=== PATIENT | female | born 1995 | race African-American/Black ===

== ENCOUNTER 2020-01-11 19:41 | Emergency (ER) | payer BC, SELFPAY ==
[2020-01-11] MEDS ORDERED: diphenhydrAMINE 50 MG/ML VIAL ONE (20:58)
[2020-01-11] MEDS ORDERED: Metoclopramide HCl 10 MG/2 ML VIAL ONE (20:58)
[2020-01-11 21:23] LABS: #Basophils 0.1 thou/uL (0.0-0.2); #Eosinphils 0.4 thou/uL (0.0-0.7); #Lymphocytes 2.6 thou/uL (1.20-3.40); #Monocytes 0.6 thou/uL (0.11-0.59); #Neutrophils 2.5 thou/uL (1.40-6.50); %Eosinophils 6.2 % (0.0-10.0); %Lymphocytes 43.2 % (21.0-51.0); %Neutrophils 40.6 % (42.0-75.0); Hemoglobin 14.3 g/dL (12.0-16.0); Mean Corpuscular HGB CONC 33.7 g/dL (32.0-36.0); Mean Corpuscular Hemoglobin 30.2 pg (27.0-31.0); Mean Corpuscular Volume 89.7 fL (78.0-98.0); Mean Platelet Volume 7.5 fL (7.4-10.4); Platelet Count 313 thou/uL (130-400); RBC Distribution Width 11.1 % (11.5-14.5); Red Blood Cell (RBC) Count 4.74 mill/uL (4.20-5.40); White Blood Cell (WBC) Count 6.1 thou/uL (4.8-10.8)
--- NOTE | 2020-01-11 21:43 | CT ---
CT HEAD WITHOUT IV CONTRAST COMPARISON: None HISTORY: Headache. TECHNIQUE: Axial CT imaging at 5 mm intervals from vertex through skull base without contrast FINDINGS: There is motion present at the skull base which limits evaluation. There is no evidence of an acute i nfarction, hemorrhage, mass effect, or midline shift. The ventricular system is normal in size, shape, and position. There is opacification of the right frontal sinus and right frontal ethmoidal recess. Visualized mast oid air cells are clear. Osseous structures appear intact. IMPRESSION: 1. No acute intracranial abnormality demonstrated. 2. Sinus disease.
[2020-01-11 21:46] LABS: ALT (SGPT) 27 U/L (8-55); AST (SGOT) 29 U/L (5-34); Albumin 4.1 g/dL (3.5-5.0); Alkaline Phosphatase 60 U/L (40-110); Anion Gap 14 mmol/L (10-20); BUN (Urea Nitrogen) 9 mg/dL (7.0-18.7); Bilirubin, Total 0.2 mg/dL (0.2-1.2); Calc. Creatinine Clearance 0 mL/min (70-130); Calcium 9.7 mg/dL (7.8-10.44); Carbon Dioxide 25 mmol/L (22-29); Chloride 101 mmol/L (98-107); Estimated GFR-MDRD 85; Globulin 4.3 g/dL (2.4-3.5); Glucose 406 mg/dL (70-105); Lipase 31 U/L (8-78); Potassium 4.4 mmol/L (3.5-5.1); Protein, Total 8.4 g/dL (6.0-8.3); Sodium 136 mmol/L (136-145)
--- NOTE | 2020-01-14 14:32 | EKG ---
Test Reason : DIZZY Blood Pressure : / mmHG Vent. Rate : 080 BPM Atrial Rate : 080 BPM P-R Int : 166 ms QRS Dur : 094 ms QT Int : 402 ms P-R-T Axes : 054 016 032 degrees QTc Int : 463 ms Normal sinus rhythm Cannot rule out Anterior infarct , age undetermined Abnormal ECG Confirmed by BENJAMIN MEJIA ([id number]), photographic editor JULITO WARREN ([id number] on 01/14/2020 2:31:54 PM Referred By: Confirmed By:BENJAMIN Easley
== END 2020-01-12 00:08 | disposition home or self-care (01) ==
LOC: ERS 19:41
DX: R51 Headache (principal); E11.9 Type 2 diabetes mellitus without complications; F17.290 Nicotine dependence, other tobacco product, uncomplicated; Z79.84 Long term (current) use of oral hypoglycemic drugs
CPT/HCPCS: 36416; 70450; 80053; 82010; 83690; 85025; 93005; 96365; 96375; J1200; J2765

== ENCOUNTER 2020-01-21 20:12 | Emergency (ER) | payer OTHER, SELFPAY ==
[2020-01-21] MEDS ORDERED: Insulin Regular 300 UNITS/3 ML VIAL ONE (21:11)
[2020-01-21 22:20] LABS: Bilirubin Negative (Negative); Blood, Urine Negative (Negative); Clarity Clear (Clear); Glucose, Urine (Dipstick) Greater than 1000 mg/dL (Negative); Leukocyte Negative Leu/uL (Negative); Nitrite Negative (Negative); Protein, Urine (Dipstick) Negative (Neg-Trace); Urobilinogen Normal mg/dL (Less than 2)
[2020-01-21 22:24] LABS: Pregnancy Test - Urine (BHCG) Negative (Negative); Pregu Control Background? CLEAR/WHITE (CLR/WHITE); Pregu Control Bar Appear? YES (CONTROL BAR); Specific Gravity 1.036 (1.002-1.036)
== END 2020-01-21 22:57 | disposition home or self-care (01) ==
LOC: ERS 20:12
DX: E11.65 Type 2 diabetes mellitus with hyperglycemia (principal); F17.290 Nicotine dependence, other tobacco product, uncomplicated; Z79.84 Long term (current) use of oral hypoglycemic drugs
CPT/HCPCS: 36416; 81003; 81025; J1815

== ENCOUNTER 2020-07-21 16:17 | Emergency (ER) | payer SELFPAY ==
[2020-07-21 18:30] LABS: Bilirubin Negative (Negative); Blood, Urine 2+ (Negative); Clarity Clear (Clear); Glucose, Urine (Dipstick) Greater than 1000 mg/dL (Negative); Ketone, Urine Trace mg/dL (Negative); Leukocyte Negative Leu/uL (Negative); Nitrite Negative (Negative); Protein, Urine (Dipstick) 30 mg/dL (Neg-Trace); Specific Gravity, Urine 1.044 (1.002-1.036); Urobilinogen Normal mg/dL (Less than 2); Yeast-Budding 1+ HPF (None Seen)
[2020-07-21 18:31] LABS: Pregnancy Test - Urine (BHCG) Negative (Negative); Pregu Control Background? CLEAR/WHITE (CLR/WHITE); Pregu Control Bar Appear? YES (CONTROL BAR); Specific Gravity 1.044 (1.002-1.036)
[2020-07-21 18:38] LABS: Bacteria/HPF Rare-Few HPF (None Seen)
[2020-07-21] MEDS ORDERED: Ketorolac Tromethamine 30 MG/ML VIAL ONE (19:34)
== END 2020-07-21 19:45 | disposition home or self-care (01) ==
LOC: ERS 16:17
DX: L02.411 Cutaneous abscess of right axilla (principal); E11.9 Type 2 diabetes mellitus without complications; F17.290 Nicotine dependence, other tobacco product, uncomplicated; Z79.84 Long term (current) use of oral hypoglycemic drugs
CPT/HCPCS: 81003; 81015; 81025; 99283; J1885

== ENCOUNTER 2020-11-24 15:45 | Emergency (ER) | payer BC, SELFPAY ==
[2020-11-24] MEDS ORDERED: Morphine 4 MG/ML VIAL ONE (16:31)
[2020-11-24] MEDS ORDERED: Diazepam 5 MG TAB ONE (16:31)
[2020-11-24] MEDS ORDERED: Lidocaine 1% w/Epinephrine 1:100K 20 ML VIAL ONE (16:31)
[2020-11-24] MEDS ORDERED: Boostrix 0.5 ML (Tdap) VIAL ONE (16:31)
== END 2020-11-24 18:32 | disposition home or self-care (01) ==
LOC: ERS 15:45
DX: L02.214 Cutaneous abscess of groin (principal); E11.9 Type 2 diabetes mellitus without complications; F17.290 Nicotine dependence, other tobacco product, uncomplicated
CPT/HCPCS: 10061; 87070; 87205; 90471; 90715; J2270

== ENCOUNTER 2021-03-13 14:46 | Inpatient (IN) | payer BC, SELFPAY ==
[~2021-03-13 14:46] MED LIST: Iopamidol-370 76% 500 ML 1 ML ONE
[2021-03-13] MEDS ORDERED: cefTRIAXone\\ROCEPHIN 2 GM VIAL ONE (15:10)
[2021-03-13] MEDS ORDERED: VANCOMYCIN HCL IVPB SCH (15:30)
[2021-03-13] MEDS ORDERED: SODIUM CHLORIDE 0.9% IVPB SCH (15:30)
[2021-03-13] MEDS ORDERED: Sodium Chloride 0.9% 2,000 ML IV SCH (15:30)
[2021-03-13 15:38] LABS: Hemoglobin 14.7 g/dL (12.0-16.0); Mean Corpuscular HGB CONC 33.6 g/dL (32.0-36.0); Mean Corpuscular Hemoglobin 30.3 pg (27.0-31.0); Mean Corpuscular Volume 90.2 fL (78.0-98.0); Mean Platelet Volume 7.2 fL (7.4-10.4); Platelet Count 252 thou/uL (130-400); Red Blood Cell (RBC) Count 4.87 mill/uL (4.20-5.40); White Blood Cell (WBC) Count 16.5 thou/uL (4.8-10.8)
[2021-03-13 16:01] LABS: ALT (SGPT) 23 U/L (8-55); AST (SGOT) 23 U/L (5-34); Albumin 4.1 g/dL (3.5-5.0); Alkaline Phosphatase 89 U/L (40-110); Anion Gap 22 mmol/L (10-20); BUN (Urea Nitrogen) 13 mg/dL (7.0-18.7); Calc. Creatinine Clearance 0 mL/min (70-130); Calcium 9.1 mg/dL (7.8-10.44); Carbon Dioxide 18 mmol/L (22-29); Chloride 94 mmol/L (98-107); Globulin 4.6 g/dL (2.4-3.5); Glucose 368 mg/dL (70-105); Lipase 15 U/L (8-78); Potassium 3.8 mmol/L (3.5-5.1); Protein, Total 8.7 g/dL (6.0-8.3); Sodium 130 mmol/L (136-145)
[2021-03-13 16:06] LABS: Band 4 % (5-11); Lymphocytes 15 % (21-51); MDiff Complete? YES; Monocytes 7 % (0-10); Neutrophil 74 % (42-75); Platelet Morphology Comment Appears Adequate; RBC Morphology Normal; Vacuoles SLIGHT
[2021-03-13 16:38] LABS: Bilirubin Negative (Negative); Blood, Urine 3+ (Negative); Clarity Extra Turbid (Clear); Glucose, Urine (Dipstick) Greater than 1000 mg/dL (Negative); Ketone, Urine Greater than 150 mg/dL (Negative); Leukocyte 500 Leu/uL (Negative); Nitrite Negative (Negative); Protein, Urine (Dipstick) 300 mg/dL (Neg-Trace); RBC/HPF Greater than 50 HPF (0-3); Specific Gravity, Urine 1.027 (1.002-1.036); Squamous Epithelial None Seen HPF (0-3); WBC/HPF Greater than 50 HPF (0-3)
[2021-03-13 16:39] LABS: Bacteria/HPF 1+ HPF (None Seen)
[2021-03-13] MEDS ORDERED: Acetaminophen 500 MG TAB ONE (17:05)
[2021-03-13 18:22] LABS: Actual Bicarbonate (HCO3v) 21 mEq/L (22-28); Analyzer IN Cardio ER; Base Excess -5.3 mEq/L (-2.0 to +3.0); Calcium, Ionized (venous) 1.04 mmol/L (1.16-1.32); Chloride (VBG) 98 mmol/L (98-106); Hemoglobin (Hb) 14.4 g/dL (11.7-15.5); Potassium (VBG) 3.75 mmol/L (3.70-5.30); pH (venous) 7.29 (7.32-7.43)
[2021-03-13] MEDS ORDERED: Dextrose 50% Abboject 50 ML SYRINGE SLOW IVP PRN (18:54)
[2021-03-13] MEDS ORDERED: Dextrose 5% in Water 1,000 ML IV PRN (18:54)
[2021-03-13] MEDS ORDERED: Lantus 1000 UNITS/10 ML VIAL SC SCH (19:00)
[2021-03-13 19:10] LABS: Lactic Acid 1.8 mmol/L (0.5-2.2)
[2021-03-13] MEDS ORDERED: Morphine 2 MG/ML VIAL SLOW IVP PRN (19:45)
[2021-03-13] MEDS ORDERED: Piperacillin/Tazobactam 3.375 GM in Sodium Chloride 0.9% 100 ML IVPB SCH (20:00)
[2021-03-13] MEDS: HumaLOG 300 UNITS/3 ML VIAL SC PRN (20:45)
[2021-03-13] MEDS: Sodium Chloride 0.9% 1,000 ML IV SCH (20:47)
[2021-03-13 21:03] VITALS: BMI 29.3
[2021-03-13] MEDS ORDERED: HumaLOG 300 UNITS/3 ML VIAL SC SCH (23:00)
[2021-03-13] MEDS: Piperacillin/Tazobactam 3.375 GM in Sodium Chloride 0.9% 100 ML IVPB SCH (23:24)
[2021-03-13 23:31] LABS: Anion Gap 16 mmol/L (10-20); BUN (Urea Nitrogen) 9 mg/dL (7.0-18.7); Calc. Creatinine Clearance 194 mL/min (70-130); Calcium 8.5 mg/dL (7.8-10.44); Carbon Dioxide 18 mmol/L (22-29); Chloride 101 mmol/L (98-107); Glucose 316 mg/dL (70-105); Potassium 4.2 mmol/L (3.5-5.1); Sodium 131 mmol/L (136-145)
[2021-03-14] MEDS ORDERED: Acetaminophen 650 MG Suppository PR PRN (03:06)
[2021-03-14] MEDS: Acetaminophen 325 MG TAB PO PRN ×3 (03:23→15:51)
[2021-03-14] MEDS: Ondansetron PF 4 MG/2 ML Vial IVP PRN ×3 (03:29→22:38)
[2021-03-14] MEDS: HumaLOG 300 UNITS/3 ML VIAL SC PRN ×4 (04:54→21:29)
[2021-03-14] MEDS: Sodium Chloride 0.9% 1,000 ML IV SCH ×4 (04:56→22:04)
[2021-03-14] MEDS: HYDROcodone/Acetaminophen 5/325 mg Tablet PO PRN ×3 (08:40→22:52)
[2021-03-14] MEDS: Enoxaparin Sodium 40 MG/0.4 ML SYRINGE SC SCH (08:40)
[2021-03-14] MEDS: Piperacillin/Tazobactam 3.375 GM in Sodium Chloride 0.9% 100 ML IVPB SCH ×3 (09:30→22:46)
[2021-03-14] MEDS ORDERED: Lantus 1000 UNITS/10 ML VIAL SC SCH ×2 (10:15→23:00)
[2021-03-14 10:52] LABS: Magnesium 1.7 mg/dL (1.6-2.6)
[2021-03-14 10:53] LABS: Anion Gap 13 mmol/L (10-20); BUN (Urea Nitrogen) 7 mg/dL (7.0-18.7); Calc. Creatinine Clearance 194 mL/min (70-130); Calcium 8.3 mg/dL (7.8-10.44); Carbon Dioxide 18 mmol/L (22-29); Chloride 101 mmol/L (98-107); Glucose 344 mg/dL (70-105); Potassium 3.2 mmol/L (3.5-5.1); Sodium 129 mmol/L (136-145)
[2021-03-14 11:00] LABS: Phosphorus 1.1 mg/dL (2.3-4.7)
[2021-03-14] MEDS: Ketorolac Tromethamine 30 MG/ML VIAL IVP SCH ×3 (11:14→22:39)
[2021-03-14] MEDS ORDERED: Potassium Phosphate 30 MMOL in Sodium Chloride 0.9% 500 ML IVPB SCH (11:30)
[2021-03-14] MEDS ORDERED: Magnesium 2 GM/50 ML 2 GM in Premix Bag 1 BAG IVPB SCH (11:45)
[2021-03-14] MEDS ORDERED: cefTRIAXone\\ROCEPHIN 1 GM in Sodium Chloride 0.9% 100 ML IVPB SCH (15:00)
[2021-03-15] MEDS: HumaLOG 300 UNITS/3 ML VIAL SC PRN ×4 (00:10→23:40)
[2021-03-15] MEDS: HYDROcodone/Acetaminophen 5/325 mg Tablet PO PRN ×3 (05:19→20:30)
[2021-03-15] MEDS: Ketorolac Tromethamine 30 MG/ML VIAL IVP SCH ×3 (05:19→18:35)
[2021-03-15] MEDS: Ondansetron PF 4 MG/2 ML Vial IVP PRN ×2 (05:58→20:28)
[2021-03-15] MEDS: Sodium Chloride 0.9% 1,000 ML IV SCH ×4 (06:09→23:50)
[2021-03-15 06:51] LABS: Hemoglobin 10.8 g/dL (12.0-16.0); Hemoglobin A1c 13.6 % (4.0-6.0); Mean Corpuscular HGB CONC 31.6 g/dL (32.0-36.0); Mean Corpuscular Hemoglobin 28.3 pg (27.0-31.0); Mean Corpuscular Volume 89.7 fL (78.0-98.0); Platelet Count 233 thou/uL (130-400); RBC Distribution Width 10.9 % (11.5-14.5); Red Blood Cell (RBC) Count 3.79 mill/uL (4.20-5.40); White Blood Cell (WBC) Count 11.1 thou/uL (4.8-10.8)
[2021-03-15 07:10] LABS: ALT (SGPT) 35 U/L (8-55); AST (SGOT) 44 U/L (5-34); Albumin 2.9 g/dL (3.5-5.0); Alkaline Phosphatase 83 U/L (40-110); Anion Gap 14 mmol/L (10-20); BUN (Urea Nitrogen) 9 mg/dL (7.0-18.7); Bilirubin, Total 0.5 mg/dL (0.2-1.2); Calc. Creatinine Clearance 204 mL/min (70-130); Calcium 8.3 mg/dL (7.8-10.44); Carbon Dioxide 18 mmol/L (22-29); Chloride 102 mmol/L (98-107); Glucose 294 mg/dL (70-105); Magnesium 2.1 mg/dL (1.6-2.6); Potassium 3.2 mmol/L (3.5-5.1); Protein, Total 6.9 g/dL (6.0-8.3); Sodium 131 mmol/L (136-145)
[2021-03-15 07:11] LABS: Phosphorus 1.1 mg/dL (2.3-4.7)
[2021-03-15 07:28] LABS: Band 13 % (5-11); Lymphocytes 10 % (21-51); MDiff Complete? YES; Monocytes 9 % (0-10); Neutrophil 68 % (42-75); Platelet Morphology Comment Appears Adequate; RBC Morphology Normal
[2021-03-15] MEDS ORDERED: Potassium Phosphate 30 MMOL in Sodium Chloride 0.9% 500 ML IVPB SCH (09:00)
[2021-03-15] MEDS ORDERED: Lantus 1000 UNITS/10 ML VIAL SC SCH ×2 (09:00→22:30)
[2021-03-15] MEDS: Piperacillin/Tazobactam 3.375 GM in Sodium Chloride 0.9% 100 ML IVPB SCH (09:02)
[2021-03-15] MEDS: Enoxaparin Sodium 40 MG/0.4 ML SYRINGE SC SCH (09:03)
[2021-03-15] MEDS: Lantus 1000 UNITS/10 ML VIAL SC SCH (09:09)
[2021-03-15] MEDS ORDERED: Electrolyte Replacement Protocol 1 EACH FS SCH (16:15)
[2021-03-15 16:17] LABS: HIV (1/2) Antibody/Antigen Non-Reactive (NonReactive); HIV 1/2 INDEX 0.08 S/CO (<1.00)
[2021-03-15] MEDS ORDERED: Electrolyte Replacement Protocol FS PRN (16:30)
[2021-03-15] MEDS: cefTRIAXone\\ROCEPHIN 2 GM in Sodium Chloride 0.9% 100 ML IVPB SCH (16:31)
[2021-03-15] MEDS: Saccharomyces boulardii 250 MG CAP PO SCH (20:28)
[2021-03-15] MEDS: Acetaminophen 325 MG TAB PO PRN (23:42)
[2021-03-16] MEDS: Sodium Chloride 0.9% 1,000 ML IV SCH ×5 (02:00→22:00)
[2021-03-16] MEDS: HumaLOG 300 UNITS/3 ML VIAL SC PRN ×4 (03:25→23:54)
[2021-03-16] MEDS: HYDROcodone/Acetaminophen 5/325 mg Tablet PO PRN ×5 (03:29→23:55)
[2021-03-16] MEDS: Ondansetron PF 4 MG/2 ML Vial IVP PRN ×2 (05:12→16:01)
[2021-03-16 05:32] LABS: Phosphorus 1.8 mg/dL (2.3-4.7)
[2021-03-16 05:33] LABS: Anion Gap 14 mmol/L (10-20); BUN (Urea Nitrogen) 8 mg/dL (7.0-18.7); Bilirubin, Total 0.4 mg/dL (0.2-1.2); Calc. Creatinine Clearance 233 mL/min (70-130); Calcium 7.9 mg/dL (7.8-10.44); Carbon Dioxide 21 mmol/L (22-29); Chloride 105 mmol/L (98-107); Glucose 259 mg/dL (70-105); Potassium 3.5 mmol/L (3.5-5.1); Sodium 136 mmol/L (136-145)
[2021-03-16 05:34] LABS: ALT (SGPT) 60 U/L (8-55); AST (SGOT) 80 U/L (5-34); Alkaline Phosphatase 93 U/L (40-110); Band 4 % (5-11); Globulin 3.3 g/dL (2.4-3.5); Hemoglobin 10.6 g/dL (12.0-16.0); Lymphocytes 23 % (21-51); MDiff Complete? YES; Mean Corpuscular HGB CONC 32.1 g/dL (32.0-36.0); Mean Corpuscular Hemoglobin 28.8 pg (27.0-31.0); Mean Corpuscular Volume 89.9 fL (78.0-98.0); Mean Platelet Volume 7.2 fL (7.4-10.4); Metamyelocyte 1 % (0-0); Monocytes 10 % (0-10); Neutrophil 62 % (42-75); Platelet Count 256 thou/uL (130-400); Platelet Morphology Comment Appears Adequate; Protein, Total 6.3 g/dL (6.0-8.3); RBC Distribution Width 10.9 % (11.5-14.5); Red Blood Cell (RBC) Count 3.68 mill/uL (4.20-5.40); White Blood Cell (WBC) Count 9.3 thou/uL (4.8-10.8)
[2021-03-16] MEDS: PHOS-NAK 1 PKT PACK PO SCH ×2 (06:35→09:14)
[2021-03-16] MEDS ORDERED: Magnesium 2 GM/50 ML 2 GM in Premix Bag 1 BAG IVPB SCH (07:15)
[2021-03-16] MEDS: Acetaminophen 325 MG TAB PO PRN ×2 (09:14→18:46)
[2021-03-16] MEDS: Enoxaparin Sodium 40 MG/0.4 ML SYRINGE SC SCH ×2 (09:15→09:28)
[2021-03-16] MEDS: Lantus 1000 UNITS/10 ML VIAL SC SCH (09:15)
[2021-03-16] MEDS: cefTRIAXone\\ROCEPHIN 2 GM in Sodium Chloride 0.9% 100 ML IVPB SCH (16:02)
[2021-03-16] MEDS: Saccharomyces boulardii 250 MG CAP PO SCH (20:13)
[2021-03-17] MEDS: HumaLOG 300 UNITS/3 ML VIAL SC PRN ×4 (04:02→17:20)
[2021-03-17] MEDS: HYDROcodone/Acetaminophen 10/325 mg Tablet PO PRN ×4 (04:05→23:10)
[2021-03-17 06:30] LABS: Anion Gap 11 mmol/L (10-20); BUN (Urea Nitrogen) 5 mg/dL (7.0-18.7); Calc. Creatinine Clearance 237 mL/min (70-130); Calcium 8.3 mg/dL (7.8-10.44); Carbon Dioxide 24 mmol/L (22-29); Chloride 103 mmol/L (98-107); Glucose 230 mg/dL (70-105); Potassium 3.3 mmol/L (3.5-5.1); Sodium 135 mmol/L (136-145)
[2021-03-17] MEDS ORDERED: Potassium Chloride 20 MEQ TAB PO SCH (06:45)
[2021-03-17 06:51] LABS: Band 3 % (5-11); Eosinophils 1 % (0-10); Hemoglobin 9.9 g/dL (12.0-16.0); Lymphocytes 30 % (21-51); MDiff Complete? YES; Mean Corpuscular HGB CONC 33.8 g/dL (32.0-36.0); Mean Corpuscular Hemoglobin 30.5 pg (27.0-31.0); Mean Corpuscular Volume 90.2 fL (78.0-98.0); Mean Platelet Volume 7.2 fL (7.4-10.4); Monocytes 11 % (0-10); Neutrophil 52 % (42-75); Nucleated RBC 2 % (0); Platelet Count 308 thou/uL (130-400); Platelet Morphology Comment Appears Adequate; RBC Distribution Width 10.9 % (11.5-14.5); RBC Morphology Normal; Reactive Lymphocytes 3 % (0-10); Red Blood Cell (RBC) Count 3.26 mill/uL (4.20-5.40); White Blood Cell (WBC) Count 7.9 thou/uL (4.8-10.8)
[2021-03-17] MEDS: Enoxaparin Sodium 40 MG/0.4 ML SYRINGE SC SCH (09:24)
[2021-03-17] MEDS: Sodium Chloride 0.9% 1,000 ML IV SCH ×2 (09:24→12:49)
[2021-03-17] MEDS: Lantus 1000 UNITS/10 ML VIAL SC SCH (09:25)
[2021-03-17] MEDS: cefTRIAXone\\ROCEPHIN 2 GM in Sodium Chloride 0.9% 100 ML IVPB SCH (17:20)
[2021-03-17] MEDS: Saccharomyces boulardii 250 MG CAP PO SCH (20:08)
[2021-03-18] MEDS: HYDROcodone/Acetaminophen 10/325 mg Tablet PO PRN ×2 (04:02→13:21)
[2021-03-18] MEDS: Sodium Chloride 0.9% 1,000 ML IV SCH (04:03)
[2021-03-18] MEDS: HumaLOG 300 UNITS/3 ML VIAL SC PRN ×2 (04:06→13:16)
[2021-03-18 05:32] VITALS: TEMP 97.9
[2021-03-18 06:29] LABS: Mean Corpuscular HGB CONC 33.9 g/dL (32.0-36.0); Mean Corpuscular Hemoglobin 30.7 pg (27.0-31.0); Mean Corpuscular Volume 90.4 fL (78.0-98.0); Mean Platelet Volume 7.2 fL (7.4-10.4); Platelet Count 343 thou/uL (130-400); Red Blood Cell (RBC) Count 3.27 mill/uL (4.20-5.40); White Blood Cell (WBC) Count 7.8 thou/uL (4.8-10.8)
[2021-03-18 06:47] LABS: Band 13 % (5-11); Eosinophils 1 % (0-10); Hypochromia SLIGHT = 6-15 cells (100X) (0-5/hpf); Lymphocytes 33 % (21-51); MDiff Complete? YES; Monocytes 1 % (0-10); Neutrophil 52 % (42-75); Platelet Morphology Comment Appears Adequate
[2021-03-18 06:56] LABS: Anion Gap 11 mmol/L (10-20); BUN (Urea Nitrogen) 4 mg/dL (7.0-18.7); Calc. Creatinine Clearance 245 mL/min (70-130); Calcium 8.4 mg/dL (7.8-10.44); Carbon Dioxide 24 mmol/L (22-29); Chloride 106 mmol/L (98-107); Glucose 166 mg/dL (70-105); Potassium 3.5 mmol/L (3.5-5.1); Sodium 137 mmol/L (136-145)
[2021-03-18] MEDS ORDERED: Potassium Chloride 20 MEQ TAB PO SCH (07:30)
[2021-03-18] MEDS: Enoxaparin Sodium 40 MG/0.4 ML SYRINGE SC SCH (08:23)
[2021-03-18] MEDS: Lantus 1000 UNITS/10 ML VIAL SC SCH (08:24)
[2021-03-18 14:19] VITALS: BP 150/94
== END 2021-03-18 14:40 | disposition home or self-care (01) | DRG 871 ==
LOC: ERS 14:46 → ERHOLD 17:09 → SJJU 19:54
PROVIDERS: ADMIT Internal Medicine; ATTEND Internal Medicine
DX: A41.51 Sepsis due to Escherichia coli [E. coli] (principal); E11.10 Type 2 diabetes mellitus with ketoacidosis without coma; N10 Acute pyelonephritis; E87.1 Hypo-osmolality and hyponatremia; R65.20 Severe sepsis without septic shock; E87.6 Hypokalemia; E83.42 Hypomagnesemia; E83.39 Other disorders of phosphorus metabolism; F17.210 Nicotine dependence, cigarettes, uncomplicated; E66.9 Obesity, unspecified; E11.65 Type 2 diabetes mellitus with hyperglycemia; D64.9 Anemia, unspecified; Z68.29 Body mass index [BMI] 29.0-29.9, adult; Z79.4 Long term (current) use of insulin
CPT/HCPCS: 36415; 36416; 74177; 80048; 80053; 81001; 82010; 82805; 83036; 83605; 83690; 83735; 84100; 84484; 85025; 87040; 87077; 87086; 87149; 87186; 87389; 96365; 96366; 96367; J0696; J1650; J1815; J1885; J2270; J2405; J2543; J3370; J3475; J3490; J7030; J7050; Q9967

== ENCOUNTER 2021-06-21 18:04 | Emergency (ER) | payer BC, MEDICAID | END 2021-06-21 19:31 | disposition home or self-care (01) | LOC: ERS 18:04 | DX: H10.9 Unspecified conjunctivitis (principal); H00.014 Hordeolum externum left upper eyelid | CPT/HCPCS: 99283 ==

== ENCOUNTER 2021-06-29 09:58 | Emergency (ER) | payer BC, MEDICAID ==
[2021-06-29 12:01] LABS: ALT (SGPT) 19 U/L (8-55); AST (SGOT) 15 U/L (5-34); Albumin 3.8 g/dL (3.5-5.0); Alkaline Phosphatase 66 U/L (40-110); Anion Gap 15 mmol/L (10-20); BUN (Urea Nitrogen) 11 mg/dL (7.0-18.7); Bilirubin, Total 0.5 mg/dL (0.2-1.2); Calc. Creatinine Clearance 0 mL/min (70-130); Calcium 9.2 mg/dL (7.8-10.44); Carbon Dioxide 21 mmol/L (22-29); Chloride 103 mmol/L (98-107); Globulin 4.1 g/dL (2.4-3.5); Glucose 320 mg/dL (70-105); Lipase 24 U/L (8-78); Potassium 3.6 mmol/L (3.5-5.1); Protein, Total 7.9 g/dL (6.0-8.3); Sodium 135 mmol/L (136-145)
[2021-06-29 12:12] LABS: Bacteria/HPF 4+ HPF (None Seen); Bilirubin Negative (Negative); Blood, Urine 3+ (Negative); Clarity Extra Turbid (Clear); Glucose, Urine (Dipstick) Greater than 1000 mg/dL (Negative); Ketone, Urine Trace mg/dL (Negative); Leukocyte 500 Leu/uL (Negative); Nitrite Negative (Negative); Protein, Urine (Dipstick) 100 mg/dL (Neg-Trace); RBC/HPF Greater than 50 HPF (0-3); Specific Gravity, Urine 1.035 (1.002-1.036); Urobilinogen Normal mg/dL (Less than 2); WBC/HPF Greater than 50 HPF (0-3)
[2021-06-29 12:13] LABS: Pregnancy Test - Urine (BHCG) Negative (Negative); Pregu Control Background? CLEAR/WHITE (CLR/WHITE); Pregu Control Bar Appear? YES (CONTROL BAR); Specific Gravity 1.035 (1.002-1.036)
[2021-06-29 12:31] LABS: #Basophils 0.1 thou/uL (0.0-0.2); #Eosinphils 0.2 thou/uL (0.0-0.7); #Lymphocytes 2.3 thou/uL (1.20-3.40); #Monocytes 1.1 thou/uL (0.11-0.59); #Neutrophils 6.2 thou/uL (1.40-6.50); %Basophils 0.6 % (0.0-1.0); %Eosinophils 2.3 % (0.0-10.0); %Lymphocytes 23.2 % (21.0-51.0); %Monocytes 11.1 % (0.0-10.0); %Neutrophils 62.8 % (42.0-75.0); Hemoglobin 14.5 g/dL (12.0-16.0); Mean Corpuscular Hemoglobin 32.2 pg (27.0-31.0); Mean Corpuscular Volume 89.4 fL (78.0-98.0); Platelet Count 276 thou/uL (130-400); Red Blood Cell (RBC) Count 4.52 mill/uL (4.20-5.40); White Blood Cell (WBC) Count 9.9 thou/uL (4.8-10.8)
== END 2021-06-29 12:50 | disposition home or self-care (01) ==
LOC: ERS 09:58
DX: N39.0 Urinary tract infection, site not specified (principal); E10.9 Type 1 diabetes mellitus without complications
CPT/HCPCS: 36415; 80053; 81003; 81015; 81025; 83690; 85025; 87077; 87086; 87186; 99284

== ENCOUNTER 2021-08-05 13:43 | Emergency (ER) | payer BC, MEDICAID ==
[2021-08-05 21:52] LABS: SARS-CoV-2 PCR by NAA DETECTED (NotDetected)
== END 2021-08-05 14:31 | disposition home or self-care (01) ==
LOC: ERS 13:43
DX: U07.1 COVID-19 (principal); E10.9 Type 1 diabetes mellitus without complications
CPT/HCPCS: 87804; 99283; U0003; U0005

== ENCOUNTER 2022-06-19 09:30 | Inpatient (IN) | payer BC ==
[2022-06-19 09:57] LABS: Actual Bicarbonate (HCO3v) 20 mEq/L (22-28); Base Excess 2.2 mEq/L (-2.0 to +3.0); Calcium, Ionized (venous) 0.97 mmol/L (1.16-1.32); Chloride (VBG) 102 mmol/L (98-106); Sodium 133.7 mmol/L (133-146); pH (venous) 7.66 (7.32-7.43)
[2022-06-19 09:59] LABS: Potassium (VBG) 6.12 mmol/L (3.70-5.30)
[2022-06-19 10:03] LABS: #Eosinphils 0.1 thou/uL (0.0-0.7); #Lymphocytes 2.8 thou/uL (1.20-3.40); #Neutrophils 13.3 thou/uL (1.40-6.50); %Basophils 0.3 % (0.0-1.0); %Eosinophils 0.5 % (0.0-10.0); %Lymphocytes 15.2 % (21.0-51.0); %Neutrophils 73.1 % (42.0-75.0); Hemoglobin 14.4 g/dL (12.0-16.0); Mean Corpuscular HGB CONC 33.8 g/dL (32.0-36.0); Mean Corpuscular Hemoglobin 30.5 pg (27.0-31.0); Mean Corpuscular Volume 90.2 fl (78.0-98.0); Mean Platelet Volume 7.5 fL (7.4-10.4); Platelet Count 272 10x3/uL (130-400); RBC Distribution Width 10.8 % (11.5-14.5); Red Blood Cell (RBC) Count 4.71 mill/uL (4.20-5.40); White Blood Cell (WBC) Count 18.1 10x3/uL (4.8-10.8)
[2022-06-19] MEDS ORDERED: Albuterol Sulfate 2.5 mg/3 ml Neb ONE (10:04)
[2022-06-19] MEDS ORDERED: Iopamidol-370 76% 500 ML 1 ML ONE (10:21)
[2022-06-19 10:36] LABS: ALT (SGPT) 17 U/L (8-55); AST (SGOT) 20 U/L (5-34); Albumin 3.9 g/dL (3.5-5.0); Alkaline Phosphatase 64 U/L (40-110); Anion Gap 15 mmol/L (10-20); BUN (Urea Nitrogen) 8 mg/dL (7.0-18.7); Calc. Creatinine Clearance 0 mL/min (70-130); Calcium 9.4 mg/dL (7.8-10.44); Carbon Dioxide 21 mmol/L (22-29); Chloride 101 mmol/L (98-107); Estimated GFR 102; Globulin 4.5 g/dL (2.4-3.5); Glucose 330 mg/dL (70-105); Magnesium 1.5 mg/dL (1.6-2.6); Potassium 4.3 mmol/L (3.5-5.1); Protein, Total 8.4 g/dL (6.0-8.3); Sodium 133 mmol/L (136-145)
[2022-06-19] MEDS ORDERED: Ondansetron PF 4 MG/2 ML Vial ONE ×2 (10:58→14:02)
[2022-06-19] MEDS ORDERED: Piperacillin/Tazobactam 4.5 GM VIAL ONE (11:43)
[2022-06-19 11:45] LABS: BHCG - Serum Negative (NEGATIVE); Pregs Control Background? CLEAR/WHITE (CLR/WHITE); Pregs Control Bar Appear? YES (CONTROL BAR)
[2022-06-19] MEDS ORDERED: Morphine 4 MG/ML VIAL ONE ×2 (11:49→14:08)
[2022-06-19] MEDS ORDERED: Piperacillin/Tazobactam 4.5 GM in Sodium Chloride 0.9% 100 ML IVPB SCH (12:00)
[2022-06-19 12:15] LABS: Bilirubin Negative (Negative); Blood, Urine 3+ (Negative); Clarity Turbid (Clear); Glucose, Urine (Dipstick) Greater than 1000 mg/dL (Negative); Ketone, Urine 40 mg/dL (Negative); Leukocyte 500 Leu/uL (Negative); Nitrite Negative (Negative); Protein, Urine (Dipstick) 50 mg/dL (Neg-Trace); RBC/HPF Greater than 50 HPF (0-3); Specific Gravity, Urine 1.024 (1.002-1.036); Squamous Epithelial 0-3 HPF (0-3); Urobilinogen Normal mg/dL (Less than 2); WBC/HPF Greater than 50 HPF (0-3); Yeast-Budding 1+ HPF (None Seen)
[2022-06-19 12:25] LABS: Bacteria/HPF 1+ HPF (None Seen)
[2022-06-19] MEDS ORDERED: Insulin Regular 300 UNITS/3 ML VIAL ONE (13:01)
[2022-06-19] MEDS ORDERED: Azithromycin 500 MG VIAL ONE (13:02)
[2022-06-19] MEDS ORDERED: Enoxaparin Sodium 40 MG/0.4 ML SYRINGE SC SCH (13:30)
[2022-06-19] MEDS ORDERED: Dextrose 50% Abboject 50 ML SYRINGE SLOW IVP PRN (13:31)
[2022-06-19] MEDS ORDERED: Dextrose 5% in Water 1,000 ML IV PRN (13:31)
[2022-06-19] MEDS ORDERED: Pantoprazole 40 MG VIAL IVP SCH (13:36)
[2022-06-19] MEDS ORDERED: Magnesium 2 GM/50 ML(in water) 2 GM in Premix Bag 1 BAG IVPB SCH (13:45)
[2022-06-19] MEDS ORDERED: Acetaminophen 500 MG TAB ONE (14:15)
[2022-06-19 14:46] LABS: Hemoglobin A1c 13.4 % (4.0-6.0)
[2022-06-19 14:56] LABS: SARS-CoV-2 NAA Rapid Test Not Detected (NotDetected)
[2022-06-19 15:09] LABS: ALT (SGPT) 13 U/L (8-55); AST (SGOT) 13 U/L (5-34); Albumin 3.7 g/dL (3.5-5.0); Alkaline Phosphatase 62 U/L (40-110); Anion Gap 17 mmol/L (10-20); BUN (Urea Nitrogen) 7 mg/dL (7.0-18.7); Calc. Creatinine Clearance 0 mL/min (70-130); Calcium 8.1 mg/dL (7.8-10.44); Carbon Dioxide 19 mmol/L (22-29); Chloride 106 mmol/L (98-107); Estimated GFR 111; Globulin 3.2 g/dL (2.4-3.5); Glucose 290 mg/dL (70-105); Potassium 3.8 mmol/L (3.5-5.1); Protein, Total 6.9 g/dL (6.0-8.3); Sodium 138 mmol/L (136-145)
[2022-06-19 16:11] VITALS: BMI 31.7
[2022-06-19] MEDS: Sodium Chloride 0.9% 1,000 ML IV SCH (16:17)
[2022-06-19] MEDS: HumaLOG 300 UNITS/3 ML VIAL SC PRN ×2 (16:36→20:00)
[2022-06-19] MEDS: Ondansetron PF 4 MG/2 ML Vial IVP PRN (19:47)
[2022-06-19] MEDS: HYDROcodone/Acetaminophen 7.5/325 mg Tablet PO PRN (19:51)
[2022-06-19] MEDS: Acetaminophen 325 MG TAB PO PRN (23:17)
[2022-06-20] MEDS: Sodium Chloride 0.9% 1,000 ML IV SCH ×4 (03:03→20:10)
[2022-06-20] MEDS: Acetaminophen 325 MG TAB PO PRN ×4 (04:53→22:52)
[2022-06-20] MEDS: HumaLOG 300 UNITS/3 ML VIAL SC PRN ×4 (04:54→20:13)
[2022-06-20 06:38] LABS: Magnesium 1.8 mg/dL (1.6-2.6)
[2022-06-20] MEDS ORDERED: Insulin Glargine 30 UNITS/0.3 ML VIAL SC SCH (09:00)
[2022-06-20] MEDS: Pantoprazole 40 MG VIAL IVP SCH (09:05)
[2022-06-20] MEDS: HYDROcodone/Acetaminophen 7.5/325 mg Tablet PO PRN (09:07)
[2022-06-20] MEDS: Enoxaparin Sodium 40 MG/0.4 ML SYRINGE SC SCH (09:11)
[2022-06-20] MEDS: cefTRIAXone\\ROCEPHIN 2 GM in Sodium Chloride 0.9% 100 ML IVPB SCH (10:22)
[2022-06-20 10:25] LABS: Hemoglobin 12.1 g/dL (12.0-16.0); Mean Corpuscular HGB CONC 34.1 g/dL (32.0-36.0); Mean Corpuscular Hemoglobin 31.8 pg (27.0-31.0); Mean Corpuscular Volume 93.3 fl (78.0-98.0); Mean Platelet Volume 7.6 fL (7.4-10.4); Platelet Count 208 10x3/uL (130-400); RBC Distribution Width 10.7 % (11.5-14.5); Red Blood Cell (RBC) Count 3.79 mill/uL (4.20-5.40); White Blood Cell (WBC) Count 16.3 10x3/uL (4.8-10.8)
[2022-06-20 11:12] LABS: ALT (SGPT) 13 U/L (8-55); AST (SGOT) 14 U/L (5-34); Albumin 3.3 g/dL (3.5-5.0); Alkaline Phosphatase 60 U/L (40-110); Anion Gap 13 mmol/L (10-20); BUN (Urea Nitrogen) 8 mg/dL (7.0-18.7); Calc. Creatinine Clearance 217 mL/min (70-130); Calcium 8.3 mg/dL (7.8-10.44); Carbon Dioxide 21 mmol/L (22-29); Chloride 104 mmol/L (98-107); Estimated GFR 119; Globulin 3.5 g/dL (2.4-3.5); Glucose 249 mg/dL (70-105); Potassium 3.4 mmol/L (3.5-5.1); Protein, Total 6.8 g/dL (6.0-8.3); Sodium 135 mmol/L (136-145)
[2022-06-20 12:07] LABS: Lymphocytes 9 % (21-51); MDiff Complete? YES; Monocytes 14 % (0-10); Neutrophil 77 % (42-75); Platelet Morphology Comment Appears Adequate; RBC Morphology Normal
[2022-06-20] MEDS ORDERED: Potassium Chloride 20 MEQ TAB PO SCH (13:00)
[2022-06-20] MEDS ORDERED: Electrolyte Replacement Protocol 1 EACH FS SCH (13:00)
[2022-06-20] MEDS ORDERED: Magnesium 2 GM/50 ML(in water) 2 GM in Premix Bag 1 BAG IVPB SCH (13:15)
[2022-06-20] MEDS: Ketorolac Tromethamine 30 MG/ML VIAL IVP SCH ×2 (14:17→18:17)
[2022-06-20] MEDS: Ondansetron PF 4 MG/2 ML Vial IVP PRN ×2 (14:20→22:52)
[2022-06-20] MEDS ORDERED: Lactated Ringer's 1,000 ML IV SCH (20:00)
[2022-06-20] MEDS: Folic Acid 1 MG TAB PO SCH (20:09)
[2022-06-20] MEDS: Multivit, Therapeutic 1 TAB PO SCH (20:09)
[2022-06-20] MEDS: Cyanocobalamin (Vitamin B-12) 1,000 MCG TAB PO SCH (20:09)
[2022-06-20] MEDS: Lactated Ringer's 1,000 ML IV SCH (20:09)
[2022-06-21] MEDS: HYDROcodone/Acetaminophen 7.5/325 mg Tablet PO PRN ×4 (01:14→20:26)
[2022-06-21] MEDS ORDERED: Ondansetron PF 4 MG/2 ML Vial IVP SCH (01:45)
[2022-06-21] MEDS: Lactated Ringer's 1,000 ML IV SCH ×4 (02:18→17:49)
[2022-06-21] MEDS ORDERED: Ketorolac Tromethamine 30 MG/ML VIAL IVP SCH ×2 (02:45→18:00)
[2022-06-21] MEDS: Acetaminophen 325 MG TAB PO PRN (05:58)
[2022-06-21] MEDS: HumaLOG 300 UNITS/3 ML VIAL SC PRN (05:58)
[2022-06-21 07:03] LABS: #Eosinphils 0.1 thou/uL (0.0-0.7); #Monocytes 1.2 thou/uL (0.11-0.59); #Neutrophils 7.3 thou/uL (1.40-6.50); %Basophils 0.3 % (0.0-1.0); %Eosinophils 0.7 % (0.0-10.0); %Lymphocytes 19.1 % (21.0-51.0); %Monocytes 11.3 % (0.0-10.0); %Neutrophils 68.7 % (42.0-75.0); Hemoglobin 10.6 g/dL (12.0-16.0); Mean Corpuscular HGB CONC 32.2 g/dL (32.0-36.0); Mean Corpuscular Hemoglobin 30.1 pg (27.0-31.0); Mean Corpuscular Volume 93.4 fl (78.0-98.0); Mean Platelet Volume 7.4 fL (7.4-10.4); Platelet Count 191 10x3/uL (130-400); RBC Distribution Width 10.7 % (11.5-14.5); Red Blood Cell (RBC) Count 3.52 mill/uL (4.20-5.40); White Blood Cell (WBC) Count 10.6 10x3/uL (4.8-10.8)
[2022-06-21 07:17] LABS: Anion Gap 9 mmol/L (10-20); BUN (Urea Nitrogen) 9 mg/dL (7.0-18.7); Calc. Creatinine Clearance 237 mL/min (70-130); Calcium 8.1 mg/dL (7.8-10.44); Carbon Dioxide 22 mmol/L (22-29); Chloride 106 mmol/L (98-107); Estimated GFR 125; Glucose 245 mg/dL (70-105); Potassium 3.4 mmol/L (3.5-5.1); Sodium 134 mmol/L (136-145)
[2022-06-21] MEDS ORDERED: Potassium Chloride 20 MEQ TAB PO SCH (07:45)
[2022-06-21] MEDS ORDERED: Insulin Glargine 30 UNITS/0.3 ML VIAL SC SCH (09:00)
[2022-06-21] MEDS: Pantoprazole 40 MG VIAL IVP SCH (09:39)
[2022-06-21] MEDS: Enoxaparin Sodium 40 MG/0.4 ML SYRINGE SC SCH (09:39)
[2022-06-21] MEDS: cefTRIAXone\\ROCEPHIN 2 GM in Sodium Chloride 0.9% 100 ML IVPB SCH (09:40)
[2022-06-21] MEDS: Insulin Glargine 30 UNITS/0.3 ML VIAL SC SCH (20:20)
[2022-06-21] MEDS: Multivit, Therapeutic 1 TAB PO SCH (20:21)
[2022-06-21] MEDS: Cyanocobalamin (Vitamin B-12) 1,000 MCG TAB PO SCH (20:21)
[2022-06-21] MEDS: Folic Acid 1 MG TAB PO SCH (20:21)
[2022-06-21] MEDS: Senokot S 8.6-50 MG TAB PO SCH (20:37)
[2022-06-22] MEDS: Lactated Ringer's 1,000 ML IV SCH ×2 (05:44→18:33)
[2022-06-22] MEDS: HYDROcodone/Acetaminophen 7.5/325 mg Tablet PO PRN ×3 (05:44→20:03)
[2022-06-22 08:06] LABS: #Eosinphils 0.1 thou/uL (0.0-0.7); #Lymphocytes 1.9 thou/uL (1.20-3.40); #Monocytes 1.2 thou/uL (0.11-0.59); #Neutrophils 6.5 thou/uL (1.40-6.50); %Basophils 0.4 % (0.0-1.0); %Eosinophils 1.3 % (0.0-10.0); %Lymphocytes 19.7 % (21.0-51.0); %Monocytes 12.3 % (0.0-10.0); %Neutrophils 66.3 % (42.0-75.0); Hemoglobin 10.1 g/dL (12.0-16.0); Mean Corpuscular HGB CONC 31.5 g/dL (32.0-36.0); Mean Corpuscular Hemoglobin 29.6 pg (27.0-31.0); Mean Corpuscular Volume 93.8 fl (78.0-98.0); Mean Platelet Volume 7.4 fL (7.4-10.4); Platelet Count 239 10x3/uL (130-400); RBC Distribution Width 10.8 % (11.5-14.5); Red Blood Cell (RBC) Count 3.41 mill/uL (4.20-5.40); White Blood Cell (WBC) Count 9.8 10x3/uL (4.8-10.8)
[2022-06-22 08:25] LABS: Anion Gap 13 mmol/L (10-20); BUN (Urea Nitrogen) 6 mg/dL (7.0-18.7); Calc. Creatinine Clearance 241 mL/min (70-130); Calcium 8.6 mg/dL (7.8-10.44); Carbon Dioxide 23 mmol/L (22-29); Chloride 104 mmol/L (98-107); Estimated GFR 125; Glucose 230 mg/dL (70-105); Potassium 3.6 mmol/L (3.5-5.1); Sodium 136 mmol/L (136-145)
[2022-06-22] MEDS: Enoxaparin Sodium 40 MG/0.4 ML SYRINGE SC SCH (08:49)
[2022-06-22] MEDS: Saccharomyces boulardii 250 MG CAP PO SCH (08:49)
[2022-06-22] MEDS: Senokot S 8.6-50 MG TAB PO SCH ×2 (08:49→20:19)
[2022-06-22] MEDS: Insulin Glargine 30 UNITS/0.3 ML VIAL SC SCH ×2 (08:50→20:19)
[2022-06-22] MEDS: cefTRIAXone\\ROCEPHIN 2 GM in Sodium Chloride 0.9% 100 ML IVPB SCH (08:59)
[2022-06-22] MEDS: Cyanocobalamin (Vitamin B-12) 1,000 MCG TAB PO SCH (20:03)
[2022-06-22] MEDS: Multivit, Therapeutic 1 TAB PO SCH (20:03)
[2022-06-22] MEDS: Folic Acid 1 MG TAB PO SCH (20:04)
[2022-06-23] MEDS: HumaLOG 300 UNITS/3 ML VIAL SC PRN ×2 (03:27→20:21)
[2022-06-23] MEDS: HYDROcodone/Acetaminophen 7.5/325 mg Tablet PO PRN ×3 (03:33→20:27)
[2022-06-23] MEDS: Enoxaparin Sodium 40 MG/0.4 ML SYRINGE SC SCH (08:28)
[2022-06-23] MEDS: Lactated Ringer's 1,000 ML IV SCH (08:28)
[2022-06-23] MEDS: Saccharomyces boulardii 250 MG CAP PO SCH (08:29)
[2022-06-23] MEDS: Senokot S 8.6-50 MG TAB PO SCH ×2 (08:29→20:21)
[2022-06-23] MEDS: Insulin Glargine 30 UNITS/0.3 ML VIAL SC SCH ×2 (08:29→20:21)
[2022-06-23] MEDS: cefTRIAXone\\ROCEPHIN 2 GM in Sodium Chloride 0.9% 100 ML IVPB SCH (08:30)
[2022-06-23] MEDS: Ondansetron PF 4 MG/2 ML Vial IVP PRN ×2 (08:58→18:34)
[2022-06-23] MEDS: Ibuprofen 200 MG TAB PO PRN ×2 (08:59→18:33)
[2022-06-23] MEDS ORDERED: Bisacodyl 5 MG TAB PO SCH (17:15)
[2022-06-23] MEDS ORDERED: HumaLOG 300 UNITS/3 ML VIAL SC SCH ×2 (17:45→21:00)
[2022-06-23] MEDS: Pregabalin 50 MG CAP PO SCH (20:20)
[2022-06-23] MEDS: Cyanocobalamin (Vitamin B-12) 1,000 MCG TAB PO SCH (20:21)
[2022-06-23] MEDS: Multivit, Therapeutic 1 TAB PO SCH (20:21)
[2022-06-23] MEDS: Folic Acid 1 MG TAB PO SCH (20:21)
[2022-06-24] MEDS: HumaLOG 300 UNITS/3 ML VIAL SC PRN (04:57)
[2022-06-24 06:53] LABS: #Eosinphils 0.2 thou/uL (0.0-0.7); #Lymphocytes 1.9 thou/uL (1.20-3.40); #Monocytes 0.7 thou/uL (0.11-0.59); #Neutrophils 3.6 thou/uL (1.40-6.50); %Basophils 0.5 % (0.0-1.0); %Eosinophils 3.8 % (0.0-10.0); %Lymphocytes 29.4 % (21.0-51.0); %Monocytes 10.5 % (0.0-10.0); %Neutrophils 55.8 % (42.0-75.0); Hemoglobin 10.5 g/dL (12.0-16.0); Mean Corpuscular HGB CONC 32.8 g/dL (32.0-36.0); Mean Corpuscular Hemoglobin 30.8 pg (27.0-31.0); Mean Platelet Volume 7.3 fL (7.4-10.4); Platelet Count 291 10x3/uL (130-400); RBC Distribution Width 10.8 % (11.5-14.5); Red Blood Cell (RBC) Count 3.39 mill/uL (4.20-5.40); White Blood Cell (WBC) Count 6.5 10x3/uL (4.8-10.8)
[2022-06-24 07:16] LABS: Anion Gap 13 mmol/L (10-20); BUN (Urea Nitrogen) 7 mg/dL (7.0-18.7); Calc. Creatinine Clearance 241 mL/min (70-130); Calcium 8.8 mg/dL (7.8-10.44); Carbon Dioxide 25 mmol/L (22-29); Chloride 103 mmol/L (98-107); Estimated GFR 125; Glucose 255 mg/dL (70-105); Potassium 3.8 mmol/L (3.5-5.1); Sodium 137 mmol/L (136-145)
[2022-06-24] MEDS: Enoxaparin Sodium 40 MG/0.4 ML SYRINGE SC SCH (07:52)
[2022-06-24] MEDS: Pregabalin 50 MG CAP PO SCH ×2 (07:56→19:48)
[2022-06-24] MEDS: Senokot S 8.6-50 MG TAB PO SCH ×2 (07:56→20:56)
[2022-06-24] MEDS: Ibuprofen 200 MG TAB PO PRN ×2 (07:56→19:47)
[2022-06-24] MEDS: Saccharomyces boulardii 250 MG CAP PO SCH (07:56)
[2022-06-24] MEDS: Ondansetron PF 4 MG/2 ML Vial IVP PRN (07:57)
[2022-06-24] MEDS: Polyethylene Glycol 3350 17 GM Packet PO SCH (07:57)
[2022-06-24] MEDS: HumaLOG 300 UNITS/3 ML VIAL SC SCH ×3 (10:25→15:34)
[2022-06-24] MEDS: Insulin Glargine 30 UNITS/0.3 ML VIAL SC SCH ×2 (10:26→20:52)
[2022-06-24] MEDS: cefTRIAXone\\ROCEPHIN 2 GM in Sodium Chloride 0.9% 100 ML IVPB SCH (10:26)
[2022-06-24] MEDS: Metoclopramide HCl 10 MG/2 ML VIAL IVP SCH ×2 (15:34→20:52)
[2022-06-24] MEDS: Folic Acid 1 MG TAB PO SCH (19:48)
[2022-06-24] MEDS: Cyanocobalamin (Vitamin B-12) 1,000 MCG TAB PO SCH (19:48)
[2022-06-24] MEDS: Multivit, Therapeutic 1 TAB PO SCH (19:48)
[2022-06-25] MEDS: Metoclopramide HCl 10 MG/2 ML VIAL IVP SCH (05:04)
[2022-06-25 07:21] LABS: ALT (SGPT) 33 U/L (8-55); AST (SGOT) 21 U/L (5-34); Albumin 2.9 g/dL (3.5-5.0); Alkaline Phosphatase 80 U/L (40-110); Anion Gap 16 mmol/L (10-20); BUN (Urea Nitrogen) 8 mg/dL (7.0-18.7); Bilirubin, Direct 0.1 mg/dL (0.1-0.3); Bilirubin, Total 0.3 mg/dL (0.2-1.2); Calc. Creatinine Clearance 244 mL/min (70-130); Calcium 8.6 mg/dL (7.8-10.44); Carbon Dioxide 18 mmol/L (22-29); Chloride 105 mmol/L (98-107); Estimated GFR 126; Glucose 208 mg/dL (70-105); Potassium 3.8 mmol/L (3.5-5.1); Protein, Total 6.9 g/dL (6.0-8.3); Sodium 135 mmol/L (136-145)
[2022-06-25 08:11] VITALS: BP 135/87; TEMP 98.5
[2022-06-25] MEDS: Saccharomyces boulardii 250 MG CAP PO SCH (08:38)
[2022-06-25] MEDS: Enoxaparin Sodium 40 MG/0.4 ML SYRINGE SC SCH (08:39)
[2022-06-25] MEDS: Pregabalin 50 MG CAP PO SCH (08:39)
[2022-06-25] MEDS: Insulin Glargine 30 UNITS/0.3 ML VIAL SC SCH (08:39)
[2022-06-25] MEDS: HumaLOG 300 UNITS/3 ML VIAL SC SCH ×2 (08:39→12:03)
[2022-06-25] MEDS: Polyethylene Glycol 3350 17 GM Packet PO SCH (08:39)
[2022-06-25] MEDS: Senokot S 8.6-50 MG TAB PO SCH (10:20)
[2022-06-25] MEDS: cefTRIAXone\\ROCEPHIN 2 GM in Sodium Chloride 0.9% 100 ML IVPB SCH (10:21)
[2022-06-25] MEDS ORDERED: Cefdinir 300 MG CAP PO SCH (21:00)
== END 2022-06-25 12:24 | disposition home or self-care (01) | DRG 872 ==
LOC: SUATTDRO 09:30 → ERS 09:30 → T4-B 13:20
PROVIDERS: ADMIT Internal Medicine; ATTEND Internal Medicine
DX: A41.9 Sepsis, unspecified organism (principal); N12 Tubulo-interstitial nephritis, not specified as acute or chronic; E87.1 Hypo-osmolality and hyponatremia; Z20.822 Contact with and (suspected) exposure to COVID-19; R65.20 Severe sepsis without septic shock; E87.5 Hyperkalemia; E11.65 Type 2 diabetes mellitus with hyperglycemia; E11.22 Type 2 diabetes mellitus with diabetic chronic kidney disease; E83.42 Hypomagnesemia; E66.01 Morbid (severe) obesity due to excess calories; Z68.31 Body mass index [BMI] 31.0-31.9, adult; Z79.899 Other long term (current) drug therapy; Z79.4 Long term (current) use of insulin; Z79.82 Long term (current) use of aspirin; Z90.89 Acquired absence of other organs; Z83.3 Family history of diabetes mellitus; Z83.49 Family history of other endocrine, nutritional and metabolic diseases
CPT/HCPCS: 36415; 36416; 71045; 74177; 76770; 80048; 80053; 80076; 81003; 81015; 82010; 82805; 83036; 83605; 83690; 83735; 84145; 84703; 85025; 86140; 87040; 87086; 93005; 93970; 94644; 96361; 96365; 96367; 96375; 96376; C9113; J0456; J0696; J1650; J1815; J1885; J1956; J2270; J2405; J2543; J2765; J3475; J3490; J7050; J7120; J7611; Q9967

== ENCOUNTER 2022-07-13 18:14 | Emergency (ER) | payer BC ==
[2022-07-13 18:36] LABS: Hemoglobin 13.6 g/dL (12.0-16.0); Mean Corpuscular HGB CONC 34.8 g/dL (32.0-36.0); Mean Corpuscular Hemoglobin 32.3 pg (27.0-31.0); Mean Corpuscular Volume 92.7 fl (78.0-98.0); Mean Platelet Volume 6.7 fL (7.4-10.4); Platelet Count 326 10x3/uL (130-400); RBC Distribution Width 11.1 % (11.5-14.5); Red Blood Cell (RBC) Count 4.22 mill/uL (4.20-5.40); White Blood Cell (WBC) Count 11.3 10x3/uL (4.8-10.8)
[2022-07-13 18:50] LABS: BHCG - Serum Negative (NEGATIVE)
[2022-07-13 18:51] LABS: Pregs Control Background? CLEAR/WHITE (CLR/WHITE); Pregs Control Bar Appear? YES (CONTROL BAR)
[2022-07-13 18:56] LABS: Eosinophils 2 % (0-10); Lymphocytes 21 % (21-51); MDiff Complete? YES; Monocytes 16 % (0-10); Neutrophil 61 % (42-75); Platelet Morphology Comment Appears Adequate; RBC Morphology Normal
[2022-07-13 18:59] LABS: ALT (SGPT) 11 U/L (8-55); AST (SGOT) 8 U/L (5-34); Alkaline Phosphatase 66 U/L (40-110); Anion Gap 17 mmol/L (10-20); BUN (Urea Nitrogen) 9 mg/dL (7.0-18.7); Bilirubin, Total 0.7 mg/dL (0.2-1.2); Calc. Creatinine Clearance 0 mL/min (70-130); Calcium 9.7 mg/dL (7.8-10.44); Carbon Dioxide 24 mmol/L (22-29); Chloride 97 mmol/L (98-107); Estimated GFR 93; Globulin 4.6 g/dL (2.4-3.5); Glucose 346 mg/dL (70-105); Lipase 17 U/L (8-78); Potassium 3.8 mmol/L (3.5-5.1); Protein, Total 8.6 g/dL (6.0-8.3); Sodium 134 mmol/L (136-145)
[2022-07-13] MEDS ORDERED: Ondansetron PF 4 MG/2 ML Vial ONE (20:43)
[2022-07-13] MEDS ORDERED: Morphine 4 MG/ML VIAL ONE (20:43)
[2022-07-13 21:30] LABS: Bacteria/HPF None Seen HPF (None Seen); Bilirubin Negative (Negative); Blood, Urine 1+ (Negative); Clarity Clear (Clear); Glucose, Urine (Dipstick) Greater than 1000 mg/dL (Negative); Ketone, Urine Negative (Negative); Leukocyte 75 Leu/uL (Negative); Mucous/LPF Rare LPF (<2+); Nitrite Negative (Negative); Protein, Urine (Dipstick) 100 mg/dL (Neg-Trace); Specific Gravity, Urine 1.024 (1.002-1.036); Squamous Epithelial 0-3 HPF (0-3); WBC/HPF Greater than 50 HPF (0-3)
[2022-07-13] MEDS ORDERED: cefTRIAXone\\ROCEPHIN 1 GM VIAL ONE (23:57)
== END 2022-07-14 01:21 | disposition home or self-care (01) ==
LOC: ERS 18:14
DX: N10 Acute pyelonephritis (principal); E10.9 Type 1 diabetes mellitus without complications
CPT/HCPCS: 36415; 74177; 80053; 81003; 81015; 83605; 83690; 84703; 85025; 87040; 87086; 94760; 96365; 96375; J0696; J2270; J2405; Q9967

== ENCOUNTER 2022-11-10 18:51 | Emergency (ER) | payer BC ==
[2022-11-10 19:27] LABS: #Eosinphils 0.1 thou/uL (0.0-0.7); #Lymphocytes 2.6 thou/uL (1.20-3.40); #Monocytes 1.1 thou/uL (0.11-0.59); %Basophils 0.4 % (0.0-1.0); %Eosinophils 0.8 % (0.0-10.0); %Lymphocytes 20.5 % (21.0-51.0); %Monocytes 8.4 % (0.0-10.0); Hemoglobin 14.3 g/dL (12.0-16.0); Mean Corpuscular HGB CONC 33.8 g/dL (32.0-36.0); Mean Corpuscular Hemoglobin 30.3 pg (27.0-31.0); Mean Corpuscular Volume 89.6 fl (78.0-98.0); Platelet Count 301 10x3/uL (130-400); RBC Distribution Width 11.2 % (11.5-14.5); Red Blood Cell (RBC) Count 4.73 mill/uL (4.20-5.40); White Blood Cell (WBC) Count 12.9 10x3/uL (4.8-10.8)
[2022-11-10 19:50] LABS: ALT (SGPT) 20 U/L (8-55); AST (SGOT) 14 U/L (5-34); Albumin 3.9 g/dL (3.5-5.0); Alkaline Phosphatase 56 U/L (40-110); Anion Gap 16 mmol/L (10-20); BUN (Urea Nitrogen) 7 mg/dL (7.0-18.7); Bilirubin, Total 0.4 mg/dL (0.2-1.2); Calc. Creatinine Clearance 0 mL/min (70-130); Calcium 9.5 mg/dL (7.8-10.44); Carbon Dioxide 23 mmol/L (22-29); Chloride 100 mmol/L (98-107); Estimated GFR 103; Globulin 3.6 g/dL (2.4-3.5); Glucose 318 mg/dL (70-105); Potassium 3.6 mmol/L (3.5-5.1); Protein, Total 7.5 g/dL (6.0-8.3); Sodium 135 mmol/L (136-145)
[2022-11-10 20:52] LABS: BHCG - Serum Negative (NEGATIVE); Pregs Control Background? CLEAR/WHITE (CLR/WHITE); Pregs Control Bar Appear? YES (CONTROL BAR)
== END 2022-11-10 20:45 | disposition left against medical advice (07) ==
LOC: ERS 18:51
DX: Z53.21 Procedure and treatment not carried out due to patient leaving prior to being seen by health care provider (principal)
CPT/HCPCS: 36415; 80053; 84703; 85025

== ENCOUNTER 2022-11-11 12:30 | Inpatient (IN) | payer BC, MEDICAID ==
[2022-11-11] MEDS ORDERED: Morphine 4 MG/ML VIAL ONE (13:00)
[2022-11-11] MEDS ORDERED: Acetaminophen 500 MG TAB ONE (13:01)
[2022-11-11] MEDS ORDERED: Ondansetron PF 4 MG/2 ML Vial ONE (13:01)
[2022-11-11 13:20] LABS: #Eosinphils 0.1 thou/uL (0.0-0.7); #Monocytes 1.3 thou/uL (0.11-0.59); #Neutrophils 9.6 thou/uL (1.40-6.50); %Basophils 0.4 % (0.0-1.0); %Eosinophils 0.8 % (0.0-10.0); %Lymphocytes 15.6 % (21.0-51.0); %Monocytes 9.6 % (0.0-10.0); %Neutrophils 73.6 % (42.0-75.0); Hemoglobin 13.4 g/dL (12.0-16.0); Mean Corpuscular HGB CONC 32.6 g/dL (32.0-36.0); Mean Corpuscular Hemoglobin 29.3 pg (27.0-31.0); Mean Corpuscular Volume 90.1 fl (78.0-98.0); Mean Platelet Volume 8.2 fL (7.4-10.4); Platelet Count 266 10x3/uL (130-400); RBC Distribution Width 11.6 % (11.5-14.5); Red Blood Cell (RBC) Count 4.57 mill/uL (4.20-5.40)
[2022-11-11 13:29] LABS: BHCG - Serum Negative (NEGATIVE); Pregs Control Background? CLEAR/WHITE (CLR/WHITE); Pregs Control Bar Appear? YES (CONTROL BAR)
[2022-11-11] MEDS ORDERED: Cefepime 2 GM VIAL ONE (13:37)
[2022-11-11] MEDS ORDERED: Vancomycin 1.5 GRAM/300 ML BAG 1.5 GM in Premix Bag 1 BAG IVPB SCH (14:00)
[2022-11-11 14:58] LABS: Albumin 3.5 g/dL (3.5-5.0)
[2022-11-11 14:59] LABS: Chloride 101 mmol/L (98-107); Sodium 133 mmol/L (136-145)
[2022-11-11 15:00] LABS: Calcium 8.5 mg/dL (7.8-10.44); Glucose 329 mg/dL (70-105)
[2022-11-11 15:01] LABS: Globulin 4.6 g/dL (2.4-3.5); Protein, Total 8.1 g/dL (6.0-8.3)
[2022-11-11 15:02] LABS: Anion Gap 15 mmol/L (10-20); Bilirubin, Total 0.5 mg/dL (0.2-1.2); Carbon Dioxide 23 mmol/L (22-29)
[2022-11-11 15:03] LABS: Alkaline Phosphatase 50 U/L (40-110)
[2022-11-11 15:04] LABS: BUN (Urea Nitrogen) 8 mg/dL (7.0-18.7); Calc. Creatinine Clearance 0 mL/min (70-130); Estimated GFR 100
[2022-11-11 15:06] LABS: ALT (SGPT) 24 U/L (8-55); AST (SGOT) 41 U/L (5-34)
[2022-11-11 16:07] LABS: Bacteria/HPF None Seen HPF (None Seen); Bilirubin Negative (Negative); Blood, Urine Trace (Negative); Clarity Clear (Clear); Glucose, Urine (Dipstick) Greater than 1000 mg/dL (Negative); Ketone, Urine Trace mg/dL (Negative); Leukocyte 250 Leu/uL (Negative); Nitrite Negative (Negative); Protein, Urine (Dipstick) Negative (Neg-Trace); RBC/HPF None Seen HPF (0-3); Specific Gravity, Urine 1.038 (1.002-1.036); Squamous Epithelial 0-3 HPF (0-3); Urobilinogen Normal mg/dL (Less than 2); pH, Urine 5.5 (5.0-9.0)
[2022-11-11 16:42] LABS: Lactic Acid 1.3 mmol/L (0.5-2.2)
[2022-11-11 17:05] LABS: Potassium 3.6 mmol/L (3.5-5.1)
[2022-11-11] MEDS ORDERED: Ondansetron PF 4 MG/2 ML Vial IVP PRN (17:13)
[2022-11-11] MEDS ORDERED: HYDROcodone/Acetaminophen 5/325 mg Tablet PO PRN (17:13)
[2022-11-11] MEDS ORDERED: Dextrose 5% in Water 1,000 ML IV PRN (17:20)
[2022-11-11] MEDS ORDERED: Dextrose 50% Abboject 50 ML SYRINGE SLOW IVP PRN (17:20)
[2022-11-11] MEDS ORDERED: HYDROcodone/Acetaminophen 5/325 mg Tablet ONE (17:56)
[2022-11-11] MEDS: Sodium Chloride 0.9% 1,000 ML IV SCH (19:32)
[2022-11-11] MEDS ORDERED: Vancomycin 1 GM in Premix Bag 1 BAG IVPB SCH (21:00)
[2022-11-11 21:07] VITALS: BMI 33.6
[2022-11-11] MEDS: HumaLOG 300 UNITS/3 ML VIAL SC PRN (21:35)
[2022-11-11] MEDS: Morphine 4 MG/ML VIAL SLOW IVP PRN (22:41)
[2022-11-12] MEDS ORDERED: HYDROcodone/Acetaminophen 5/325 mg Tablet PO PRN (00:11)
[2022-11-12] MEDS: Sodium Chloride 0.9% 1,000 ML IV SCH ×4 (03:30→23:00)
[2022-11-12] MEDS: HYDROcodone/Acetaminophen 5/325 mg Tablet PO PRN ×2 (03:40→10:27)
[2022-11-12] MEDS: VANCOMYCIN 1.75 GM/500 ML BAG 1.75 GM in Premix Bag 1 BAG IVPB SCH ×2 (03:40→14:33)
[2022-11-12 06:30] LABS: #Eosinphils 0.2 thou/uL (0.0-0.7); #Lymphocytes 2.8 thou/uL (1.20-3.40); #Monocytes 1.7 thou/uL (0.11-0.59); #Neutrophils 8.5 thou/uL (1.40-6.50); %Basophils 0.1 % (0.0-1.0); %Eosinophils 1.3 % (0.0-10.0); %Lymphocytes 21.1 % (21.0-51.0); %Monocytes 12.8 % (0.0-10.0); %Neutrophils 64.7 % (42.0-75.0); Hemoglobin 11.8 g/dL (12.0-16.0); Mean Corpuscular HGB CONC 35.1 g/dL (32.0-36.0); Mean Corpuscular Hemoglobin 31.8 pg (27.0-31.0); Mean Corpuscular Volume 90.7 fl (78.0-98.0); Mean Platelet Volume 7.2 fL (7.4-10.4); Platelet Count 249 10x3/uL (130-400); Red Blood Cell (RBC) Count 3.72 mill/uL (4.20-5.40); White Blood Cell (WBC) Count 13.1 10x3/uL (4.8-10.8)
[2022-11-12] MEDS: HumaLOG 300 UNITS/3 ML VIAL SC PRN (06:35)
[2022-11-12 06:41] LABS: Anion Gap 10 mmol/L (10-20); BUN (Urea Nitrogen) 6 mg/dL (7.0-18.7); Calc. Creatinine Clearance 248 mL/min (70-130); Calcium 7.5 mg/dL (7.8-10.44); Carbon Dioxide 22 mmol/L (22-29); Chloride 107 mmol/L (98-107); Estimated GFR 124; Glucose 321 mg/dL (70-105); Potassium 3.2 mmol/L (3.5-5.1); Sodium 136 mmol/L (136-145)
[2022-11-12] MEDS: Saccharomyces boulardii 250 MG CAP PO SCH (09:04)
[2022-11-12] MEDS: Insulin Glargine 30 UNITS/0.3 ML VIAL SC SCH (09:04)
[2022-11-12] MEDS: Pregabalin 50 MG CAP PO SCH (09:04)
[2022-11-12] MEDS ORDERED: fentaNYL PF 100 MCG/2 ML SYRINGE ONE (17:41)
[2022-11-12] MEDS ORDERED: Midazolam HCl 2 mg/2 ml Vial ONE (17:47)
[2022-11-12] MEDS ORDERED: NEOSTIGMINE 3 MG/3 ML SYR 3 MG/3 ML SYRINGE ONE (18:11)
[2022-11-12] MEDS ORDERED: GLYCOPYRROLATE/PF 0.2 MG/ML VIAL ONE (18:11)
[2022-11-12] MEDS ORDERED: ePHEDrine Sulfate 50 MG/10 ML VIAL ONE (18:11)
[2022-11-12] MEDS ORDERED: Dexamethasone 20 MG/5 ML VIAL ONE (18:11)
[2022-11-12] MEDS ORDERED: Ketorolac Tromethamine 30 MG/ML VIAL ONE (18:11)
[2022-11-12] MEDS ORDERED: Lidocaine 1% PF 5 ML VIAL ONE (18:11)
[2022-11-12] MEDS ORDERED: Rocuronium Bromide 10 MG/ML (10ML VIAL) ONE (18:11)
[2022-11-12] MEDS ORDERED: Ondansetron PF 4 MG/2 ML Vial ONE (18:11)
[2022-11-12] MEDS ORDERED: PROPOFOL 200 MG/20 ML VIAL ONE (18:11)
[2022-11-12] MEDS ORDERED: Promethazine HCl 25 MG/ML VIAL IM PRN (18:41)
[2022-11-12] MEDS ORDERED: PACU-Morphine 4MG/ML VIAL SLOW IVP PRN (18:41)
[2022-11-12] MEDS ORDERED: HYDROmorphone 2 MG/ML VIAL SLOW IVP PRN (18:41)
[2022-11-12] MEDS ORDERED: Ondansetron HCl/PF 4 MG/2 ML Vial IVP PRN (18:41)
[2022-11-12] MEDS ORDERED: fentaNYL 50 mcg/mL 1 mL Vial ONE ×2 (18:53→19:11)
[2022-11-12] MEDS: Cyanocobalamin (Vitamin B-12) 1,000 MCG TAB PO SCH (20:23)
[2022-11-12] MEDS: Folic Acid 1 MG TAB PO SCH (20:23)
[2022-11-12] MEDS: Morphine 4 MG/ML VIAL SLOW IVP PRN (21:41)
[2022-11-13] MEDS: Insulin Glargine 30 UNITS/0.3 ML VIAL SC SCH ×3 (01:17→22:43)
[2022-11-13] MEDS: Pregabalin 50 MG CAP PO SCH ×3 (01:22→20:36)
[2022-11-13 02:24] LABS: Vancomycin, Trough 1.5 ug/mL
[2022-11-13] MEDS: HumaLOG 300 UNITS/3 ML VIAL SC PRN ×3 (03:02→17:48)
[2022-11-13] MEDS: VANCOMYCIN 1.75 GM/500 ML BAG 1.75 GM in Premix Bag 1 BAG IVPB SCH (03:10)
[2022-11-13] MEDS: Sodium Chloride 0.9% 1,000 ML IV SCH ×2 (04:49→20:40)
[2022-11-13] MEDS: VANCOMYCIN 2 GRAM/500 ML BAG 2 GM in Premix Bag 1 BAG IVPB SCH ×3 (04:49→22:38)
[2022-11-13 06:03] LABS: #Basophils 0.1 thou/uL (0.0-0.2); #Lymphocytes 1.4 thou/uL (1.20-3.40); #Monocytes 0.8 thou/uL (0.11-0.59); #Neutrophils 11.9 thou/uL (1.40-6.50); %Basophils 0.6 % (0.0-1.0); %Eosinophils 0.1 % (0.0-10.0); %Lymphocytes 9.7 % (21.0-51.0); %Monocytes 5.3 % (0.0-10.0); %Neutrophils 84.2 % (42.0-75.0); Hemoglobin 11.8 g/dL (12.0-16.0); Mean Corpuscular HGB CONC 33.3 g/dL (32.0-36.0); Mean Corpuscular Hemoglobin 30.1 pg (27.0-31.0); Mean Corpuscular Volume 90.4 fl (78.0-98.0); Mean Platelet Volume 6.6 fL (7.4-10.4); Platelet Count 272 10x3/uL (130-400); Red Blood Cell (RBC) Count 3.92 mill/uL (4.20-5.40); White Blood Cell (WBC) Count 14.1 10x3/uL (4.8-10.8)
[2022-11-13 06:38] LABS: Anion Gap 13 mmol/L (10-20); BUN (Urea Nitrogen) 7 mg/dL (7.0-18.7); Calc. Creatinine Clearance 237 mL/min (70-130); Calcium 8.8 mg/dL (7.8-10.44); Carbon Dioxide 20 mmol/L (22-29); Chloride 107 mmol/L (98-107); Estimated GFR 123; Glucose 303 mg/dL (70-105); Magnesium 1.9 mg/dL (1.6-2.6); Phosphorus 2.7 mg/dL (2.3-4.7); Potassium 3.7 mmol/L (3.5-5.1); Sodium 136 mmol/L (136-145)
[2022-11-13] MEDS: Cefepime 2 GM in Sodium Chloride 0.9% 100 ML IVPB SCH ×2 (09:11→20:40)
[2022-11-13] MEDS: Saccharomyces boulardii 250 MG CAP PO SCH (09:12)
[2022-11-13] MEDS: HYDROcodone/Acetaminophen 5/325 mg Tablet PO PRN ×2 (11:08→15:11)
[2022-11-13] MEDS: Morphine 2 MG/ML VIAL SLOW IVP SCH ×2 (12:15→13:26)
[2022-11-13] MEDS: Morphine 2 MG/ML VIAL SLOW IVP PRN ×2 (12:16→22:57)
[2022-11-13] MEDS: Cyanocobalamin (Vitamin B-12) 1,000 MCG TAB PO SCH (20:36)
[2022-11-13] MEDS: Folic Acid 1 MG TAB PO SCH (20:38)
[2022-11-14 03:59] LABS: Vancomycin, Trough 15.6 ug/mL
[2022-11-14 04:59] VITALS: TEMP 98.6
[2022-11-14] MEDS: Sodium Chloride 0.9% 1,000 ML IV SCH (05:07)
[2022-11-14] MEDS: VANCOMYCIN 2 GRAM/500 ML BAG 2 GM in Premix Bag 1 BAG IVPB SCH ×2 (05:08→12:00)
[2022-11-14] MEDS: HumaLOG 300 UNITS/3 ML VIAL SC PRN (05:12)
[2022-11-14 07:55] LABS: #Eosinphils 0.2 thou/uL (0.0-0.7); #Lymphocytes 2.8 thou/uL (1.20-3.40); #Monocytes 0.8 thou/uL (0.11-0.59); #Neutrophils 6.3 thou/uL (1.40-6.50); %Basophils 0.3 % (0.0-1.0); %Eosinophils 2.2 % (0.0-10.0); %Lymphocytes 27.5 % (21.0-51.0); %Monocytes 8.3 % (0.0-10.0); %Neutrophils 61.7 % (42.0-75.0); Hemoglobin 11.2 g/dL (12.0-16.0); Mean Corpuscular HGB CONC 34.4 g/dL (32.0-36.0); Mean Corpuscular Hemoglobin 31.3 pg (27.0-31.0); Mean Platelet Volume 7.1 fL (7.4-10.4); Platelet Count 290 10x3/uL (130-400); Red Blood Cell (RBC) Count 3.59 mill/uL (4.20-5.40); White Blood Cell (WBC) Count 10.1 10x3/uL (4.8-10.8)
[2022-11-14 08:23] VITALS: BP 115/74
[2022-11-14 08:30] LABS: Anion Gap 10 mmol/L (10-20); BUN (Urea Nitrogen) 8 mg/dL (7.0-18.7); Calc. Creatinine Clearance 251 mL/min (70-130); Calcium 8.4 mg/dL (7.8-10.44); Carbon Dioxide 22 mmol/L (22-29); Chloride 109 mmol/L (98-107); Estimated GFR 125; Glucose 299 mg/dL (70-105); Potassium 3.4 mmol/L (3.5-5.1); Sodium 138 mmol/L (136-145)
[2022-11-14] MEDS: Cefepime 2 GM in Sodium Chloride 0.9% 100 ML IVPB SCH ×2 (09:25→09:39)
[2022-11-14] MEDS: Saccharomyces boulardii 250 MG CAP PO SCH (09:27)
[2022-11-14] MEDS: Pregabalin 50 MG CAP PO SCH (09:27)
[2022-11-14] MEDS: Insulin Glargine 30 UNITS/0.3 ML VIAL SC SCH (09:28)
[2022-11-14] MEDS: HYDROcodone/Acetaminophen 5/325 mg Tablet PO PRN ×2 (09:38→13:54)
[2022-11-14] MEDS ORDERED: HumuLIN 70/30 (300 UNITS/3 ML VIAL) SC SCH ×2 (09:56→21:00)
== END 2022-11-14 14:40 | disposition home or self-care (01) | DRG 854 ==
LOC: ERS 12:30 → ERHOLD 16:43 → T4-B 20:23
PROVIDERS: ADMIT Internal Medicine; ATTEND Internal Medicine
PROC: 3E03329 Introduction of Other Anti-infective into Peripheral Vein, Percutaneous Approach (ICD-10-PCS; principal; 2022-11-11)
PROC: 0JB90ZZ Excision of Buttock Subcutaneous Tissue and Fascia, Open Approach (ICD-10-PCS; 2022-11-12)
DX: A41.9 Sepsis, unspecified organism (principal); L02.31 Cutaneous abscess of buttock; L03.115 Cellulitis of right lower limb; E66.9 Obesity, unspecified; E10.65 Type 1 diabetes mellitus with hyperglycemia; I10 Essential (primary) hypertension; Z68.33 Body mass index [BMI] 33.0-33.9, adult; Z79.4 Long term (current) use of insulin; Z79.84 Long term (current) use of oral hypoglycemic drugs; Z90.89 Acquired absence of other organs; Z79.899 Other long term (current) drug therapy
CPT/HCPCS: 36415; 36416; 76999; 80048; 80053; 80202; 81003; 81015; 82010; 83605; 83735; 84100; 84703; 85025; 87040; 87070; 87076; 87205; 96365; 96366; 96367; 96375; 97139; J0692; J1100; J1650; J1815; J1885; J2250; J2270; J2272; J2405; J2704; J3010; J3370; J3490; J7050